=== PATIENT | female | born 1975 | race Caucasian/White ===

== ENCOUNTER → 2019-02-04 | Outpatient (CLI) | payer BC ==
[~2019-02-04] MED LIST: CLARITIN10 MG PO; LYSINE1000 MG PO; MULTIPLE VITAMI1 TA9 PO; PERCOCET 325 MG1 TA2 PO
== END | disposition home or self-care (01) ==
LOC: US 02-02 09:30
DX: R10.84 Generalized abdominal pain (principal); R79.89 Other specified abnormal findings of blood chemistry